=== PATIENT | female | born 1970 | race Caucasian/White ===

== ENCOUNTER → 2016-04-06 | Outpatient (CLI) | payer OTHER ==
[~2016-04-06] MED LIST: CORT1SOL RIGHT EAR
--- NOTE | 2016-04-06 13:42 | RADRPT ---
EXAM DATE/TIME: 04/06/2016 12:50 [place] COMPARISON: No previous studies available for comparison. INDICATIONS : Pain in coccyx area, no known trauma. MEDICAL HISTORY : None. SURGICAL HISTORY : None. ENCOUNTER: Initial ACUITY: 2 months PAIN SCORE: 10/10 LOCATION: Coccyx. FINDINGS: There are five non-rib bearing vertebral bodies. The vertebral bodies are in normal alignment withou t evidence of subluxation or scoliosis. The disc spaces are maintained. The posterior elements are intact without evidence of spondylolysis. The pedicles are intact. Bony mineralization is normal. No fracture is identified. CONCLUSION: Unremarkable examination of the lumbar spine. Oh Balderas MD on April 06, 2016 at 13:39 Board Certified Radiologist. This report was verified electronically.
== END ==
LOC: HRAD 12:34
PROVIDERS: ATTEND Family Medicine
DX: M54.5 Low back pain (principal)
CPT/HCPCS: 72110